=== PATIENT | female | born 1990 | race American Indian/Alaskan Native ===

== ENCOUNTER 2020-07-11 21:24 | Observation (INO) | payer SELFPAY ==
[2020-07-11] MEDS ORDERED: HYDROmorphone 1 MG/1 ML INJ IV ONE ×3 (21:32→23:57)
[2020-07-11] MEDS ORDERED: ONDANSETRON 4 MG/2 ML INJ IV ONE (21:32)
[2020-07-11] MEDS ORDERED: SODIUM CHLORIDE 0.9% 1000 ML 1,000 ML IV ONE (21:32)
--- NOTE | 2020-07-11 21:33 | Emergency Department Report ---
ED HPI - General Chief complaint: Abdominal Pain Stated complaint: POSSIBLE MISCARRIAGE Time Seen by Provider: 07/11/20 21:29 Source: patient Mode of arrival: Stretcher Limitations: No Limitations - History of Present Illness Initial comments: Patient is a 30-year-old female that presents emergency room with complaints of lower abdominal pain and pelvic pain vaginal bleeding. Patient dates she is 6 weeks . Patient states she had a previous ultrasound at a [facility] to confirm . They states she had 1 week ago and she was told that she was 5 weeks . Patient is not sure of when her last period was. Patient states the pain is severe. Patient states the pain is improved a little bit since receiving medication from EMS. Patient brought in by EMS. Report received from EMS. EMS states that the patient was having severe pain to the 50 mcg of fentanyl x2. Patient states pain is a little bit better. Patient states the pain is still a 7 out of 10. Patient states the pain is better with rest and worse with movement. Patient states she is having heavy clots and heavy bleeding per the vagina. Patient denies recent travel. Patient denies recent international travel. Patient denies exposure to the novel coronavirus. Patient denies sick contacts. Patient denies fever and chills. Patient denies cough. Patient denies diarrhea. Patient denies coming in contact with anybody with symptoms of the novel coronavirus. MD Complaint: abdominal pain, vaginal bleeding -: Sudden Location: pelvis Radiation: none Severity: severe Quality: cramping, stabbing Consistency: intermittent Improves with: rest Worsens with: movement Associated symptoms: vaginal bleeding, abdominal pain. denies: nausea/vomiting, vaginal discharge, dysuria, headache, vision changes, malaise, dysparuenia, rash, seizure, shortness of breath, syncope, weakness Vaginal bleeding: heavy, clots :: Yes Number of weeks : 6 OB History - Current : no complications OB History - Previous Pregnancies: no complications Pre-alfredo care: previous ultrasound confi - Related Data : 5 Para: 3 Ab: 1 Allergies Allergy/AdvReac Type Severity Reaction Status Date / Time latex Allergy Hives Verified 07/11/20 21:37 ED Review of Systems ROS: Stated complaint: POSSIBLE MISCARRIAGE Other details as noted in HPI Constitutional: denies: chills, fever Eyes: denies: eye pain, eye discharge, vision change ENT: denies: ear pain, throat pain Respiratory: denies: cough, shortness of breath, wheezing Cardiovascular: denies: chest pain, palpitations Endocrine: no symptoms reported Gastrointestinal: as per HPI, abdominal pain. denies: nausea, diarrhea Genitourinary: as per HPI. denies: urgency, dysuria, discharge Musculoskeletal: denies: back pain, joint swelling, arthralgia Skin: denies: rash, lesions Neurological: denies: headache, weakness, paresthesias Psychiatric: denies: anxiety, depression Hematological/Lymphatic: denies: easy bleeding, easy bruising ED Past Medical Hx - Past Medical History Previous Medical History?: No - Surgical History Past Surgical History?: No - Family History Family history: no significant - Social History Smoking Status: Never Smoker Substance Use Type: None ED Physical Exam - General Limitations: No Limitations General appearance: alert, in no apparent distress - Head Head exam: Present: atraumatic, normocephalic - Eye Eye exam: Present: normal appearance - ENT ENT exam: Present: mucous membranes moist - Neck Neck exam: Present: normal inspection - Respiratory Respiratory exam: Present: normal lung sounds bilaterally. Absent: respiratory distress - Cardiovascular Cardiovascular Exam: Present: regular rate, normal rhythm. Absent: systolic murmur, diastolic murmur, rubs, gallop - GI/Abdominal GI/Abdominal exam: Present: soft, tenderness, normal bowel sounds - Rectal Rectal exam: Present: deferred - Extremities Exam Extremities exam: Present: normal inspection - Back Exam Back exam: Present: normal inspection - Neurological Exam Neurological exam: Present: alert, oriented X3 - Psychiatric Psychiatric exam: Present: normal affect, normal mood - Skin Skin exam: Present: warm, dry, intact, normal color. Absent: rash ED Course Vital Signs 07/11/20 21:38 Temperature 98.9 F Respiratory 20 Rate - Reevaluation(s) Reevaluation #1: Patient states she still having heavy vaginal bleeding. 07/11/20 22:01 Reevaluation #2: Patient states her pain is better. Patient has had the ultrasound done. Patient states her bleeding has slowed down since the ultrasound. Patient's blood pressure is 80/50. Patient's saline bolus open wide open. 07/11/20 22:49 Reevaluation #3: Patient's bleeding has increased again. Patient states her pain is better. Patient's blood pressures 100/60. Patient will continue to receive fluids and we will monitor blood pressure. 07/11/20 23:01 Reevaluation #4: Patient is complaining of severe pain. Patient states she has changed her pad because she bled through a pad. Patient will be given 1 mg Dilaudid. 07/11/20 23:56 Reevaluation #5: Cervical exam done with nurse Christel in the room. The cervical os is closed. N o active bleeding noted. A blood clot removed from the vaginal vault. 07/12/20 00:50 I discussed all results with patient. I discussed plan of care with patient. Patient agrees with plan of care and admission. Patient to be admitted to the [facility] service. 07/12/20 00:58 - Consultations Consultation #1: I discussed case with Dr. Collier, [facility]. Dr. Crenshaw pelvic exam done and then her called back with the status of the cervix. 07/12/20 00:22 Dr. Collier updated with pelvic exam. Dr. COLLIER wants patient admitted to MOTHER-BABY AND TRANSFUSE. 07/12/20 00:55 ED Medical Decision Making - Lab Data Result diagrams: 07/11/20 21:41 07/11/20 21:41 - Radiology Data Radiology results: report reviewed OB Ultrasound HISTORY: vaginal bleeding in . 6 weeks. TECHNIQUE: Grayscale and color imaging performed. COMPARISON: None FINDINGS: Uterus measures 8.3 x 5.0 x 5.6 cm with endometrial echo complex measuring 6 mm. No intrauterine gestation is identified. There are tiny right ovarian follicles. The left ovary is not visualized. No appreciable pelvic free fluid. IMPRESSION: 1. No intrauterine gestation identified. 2. Left ovary is not visualized. 3. Otherwise unremarkable exam. - Medical Decision Making Patient is a 30-year-old female who presents via EMS to the emergency room for severe pelvic and lower abdominal pain. Patient states he is having vaginal bleeding. Patient is 6 weeks . Patient is already had a confirmed IUP with ultrasound. Patient given fentanyl 100 mcg by EMS. Patient given fluids by EMS. Patient in the ER given Dilaudid and Zofran. Patient responded well to pain medication. Patient remained tachycardic and then became hypotensive. Patient was given another liter of fluids in the ER and the patient's blood pressure improved. Patient heart rate improved. Patient's hemoglobin 7.5. Due to the patient's hypotension and tachycardia, the patient will be transfused. Patient was typed and crossed. A pelvic exam was done with a nurse sawmilling operator at all times, Christel GOMES. The pelvic exam showed a closed cervical os and no active bleeding. Patient had labs done and were essentially unremarkable per anemia. Patient's chemistry was normal. Patient had an ultrasound in the ER and it shows a complete miscarriage and no IUP. Patient admitted to [facility], mother-baby for observation and transfusion. Critical care time documented due to the multiple reassessments, prolonged time at the bedside, interpretation of diagnostics and labs. - Differential Diagnosis Miscarriage, anemia, hypotension, tachycardia, abdominal pain Critical Care Time: Yes Critical care time in (mins) excluding proc time.: 35 Critical care attestation.: If time is entered above; I have spent that time in minutes in the direct care of this critically ill patient, excluding procedure time. Critical Care Time: 35 minutes ED Disposition Clinical Impression: Vaginal bleeding, Vaginal bleeding before 22 weeks gestation, Severe anemia, Tachycardia, Complete miscarriage Qualifiers: Weeks of gestation: less than 8 weeks Qualified Code(s): Z3A.01 - Less than 8 weeks gestation of Anemia Qualifiers: Anemia type: unspecified type Qualified Code(s): D64.9 - Anemia, unspecified Hypotension Qualifiers: Hypotension type: unspecified hypotension type Qualified Code(s): I95.9 - Hypotension, unspecified Disposition: OP ADMIT IP TO THIS HOSP Is pt being admited?: Yes Does the pt Need Aspirin: No Condition: Critical Instructions: Abdominal Pain (ED) Time of Disposition: 00:58
[2020-07-11 21:55] LABS: Basophils # (Auto) 0.1 K/mm3 (0.0-0.1); Basophils % (Auto) 0.8 % (0.0-1.8); Eosinophils % (Auto) 0.3 % (0.0-4.3); Lymphocytes # (Auto) 1.6 K/mm3 (1.2-5.4); Lymphocytes % (Auto) 24.7 % (13.4-35.0); Mean Corpuscular HGB Conc 29 % (30-34); Monocytes # (Auto) 0.7 K/mm3 (0.0-0.8); Monocytes % (Auto) 11.5 % (0.0-7.3); Platelet Count 437 K/mm3 (140-440); Red Blood Count 4.08 M/mm3 (3.65-5.03); Red Cell Distribution Width 19.2 % (13.2-15.2)
[2020-07-11 22:04] LABS: Hematocrit 25.8 % (30.3-42.9); Hemoglobin 7.5 gm/dl (10.1-14.3); Mean Corpuscular Volume 63 fl (79-97)
[2020-07-11 22:11] LABS: Blood Urea Nitrogen 13 mg/dL (7-17); Calcium 8.3 mg/dL (8.4-10.2); Hemolysis Index 1
[2020-07-11 22:18] LABS: BUN/Creatinine Ratio 19
--- NOTE | 2020-07-11 23:02 | Ultrasound Report ---
OB Ultrasound HISTORY: vaginal bleeding in . 6 weeks. TECHNIQUE: Grayscale and color imaging performed. COMPARISON: None FINDINGS: Uterus measures 8.3 x 5.0 x 5.6 cm with endometrial echo complex measuring 6 mm. No intraut erine gestation is identified. There are tiny right ovarian follicles. The left ovary is not visualized. No appreciable pelvic free fluid. IMPRESSION: 1. No intrauterine gestation identified. 2. Left ovary is not visualized. 3. Otherwise unremarkable exam. Signer Name: Ralph Crenshaw MD Signed: 07/11/2020 10:57 PM Workstation Name: [id number]
[2020-07-11] MEDS ORDERED: SODIUM CHLORIDE 0.9% 500 ML 500 ML IV ONE (23:51)
[2020-07-12] MEDS ORDERED: HYDROmorphone 1 MG/1 ML INJ IV ONE (01:08)
--- NOTE | 2020-07-12 02:53 | History and Physical Report ---
History of Present Illness Date of examination: 07/12/20 Date of admission: 07/12/20 00:54 Chief complaint: vaginal bleeding and taken to ER via ambulance, positive preg test History of present illness: came to the ER via ambulance with c/o vaginal bleeding that started after having argument with her female partner at home. Pt states she had a positive test on 06/12/20 (pt showed me true blue double line preg test in the picture of her phone) and states that she had sex with a male once in the last week of April because she was planning to have another baby with her female partner. Pt also admits to abdominal pain that started today. Pt states she believes her last period was in the last week of April or the First week of May, she cannot recall. On arrival pt states that she was not dizzy until she was given pain med in the ER and the blood transfusion accepted because she was told her hgb was 4 and her cervix was open. Pt denies dysuria and states she has seen urology for problems with urinary retention in the past. She also admits to having lupus and taking meds and managed by Artificial Log Machine Operator at [facility]. ER physician Dr. Keene called me concerned that he had a patient 6wks (dated by pt report that she had an ultrasound 1wk ago from a clinic at 5wks gestation by ultrasound. No documents available.) that was actively bleeding and tacchycardic and when asked about pelvic exam, he had not done so. With follow up call, this same physician told me the patient was not no longer bleeding and needed to be transfused because her hemoglobin fell to 7. I accepted the patient and told him I would rather her stay in the ER in case I had to complete her miscarriage in the OR, however if stable she may be transferred to the floor. When pt arrived to mother baby, Blood transfusion was already in progress and pt asymptomatic and did not want it continued. On review of the chart, labs for HCG<[address] Keene who admitted that he saw that. 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 Review of Systems All systems: negative (abdominal cramping) - Vital Signs Vital signs: Vital Signs Temp Resp 98.9 F 20 07/11/20 21:38 07/11/20 21:38 Temp Pulse Resp BP Pulse Ox 98.1 F 83 14 110/71 100 07/12/20 02:00 07/12/20 02:00 07/12/20 02:00 07/12/20 02:00 07/12/20 02:00 - Physical Exam Breasts: Positive: normal (without fullness) Cardiovascular: Regular rate (had single tacchycardia episode in ER at 115 and normal BP) Lungs: Positive: Normal air movement Abdomen: Positive: normal appearance Genitourinary (Female): Positive: normal external genitalia (pt with multiple piercings to perineum) Vulva: both: normal Vagina: Positive: normal moisture, discharge (dark brown discharge without any [place] bleeding and pt is not even wearing a pad) Cervix: Positive: other (palpation of cervix closed) Uterus: Positive: normal size (non-enlarged) Adnexa: both: normal Anus/Rectum: Positive: normal perianal skin Extremities: Positive: normal Results Result Diagrams: 07/11/20 21:41 07/11/20 21:41 Abnormal lab results 07/11/20 07/11/20 07/11/20 Range/Units 21:41 21:41 21:43 Hgb 7.5 L (10.1-14.3) gm/dl Hct 25.8 L (30.3-42.9) % MCV 63 L (79-97) fl MCH 18 L (28-32) pg MCHC 29 L (30-34) % RDW 19.2 H (13.2-15.2) % [place] % (Auto) 11.5 H (0.0-7.3) % Sodium 135 L (137-145) mmol/L Potassium 3.4 L (3.6-5.0) mmol/L Calcium 8.3 L (8.4-10.2) mg/dL Crossmatch See Detail All other labs normal. Ultrasound: other (U/Sound with normal size uterus, no IUP, adnexa viewed wnl. 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 1. I will stop the blood transfusion per patient request and charge nurse notified; Hgb 7.5 with none prior, vitals normal 2. I will repeat HCG quant in case of lab error 3. Urine drug screen to be done with conflicting information 4. Will give K-dur 40meq orally for potassium 5. Emotional support given Pt if she remains stable will be discharged home later today to follow up as outpatient for management dysmenorrhea and pt to keep appt with Artificial Log Machine Operator. All questions encouraged and answered
[2020-07-12 04:05] LABS: Amphetamine Screen,Urine PRESUMPTIVE NEGATIVE; Benzodiazepines Screen,Urine PRESUMPTIVE NEGATIVE; Cannabinoid Screen,Urine PRESUMPTIVE POSITIVE; Cocaine Screen,Urine PRESUMPTIVE NEGATIVE; Methadone Screen,Urine PRESUMPTIVE NEGATIVE; Opiate Screen,Urine PRESUMPTIVE NEGATIVE
[2020-07-12] MEDS ORDERED: POTASSIUM CHLORIDE ER 20 MEQ TAB PO SCH (08:00)
[2020-07-12] MEDS ORDERED: POTASSIUM CHLORIDE 20 MEQ PACKET PO ONE (08:30)
[2020-07-12 09:42] VITALS: BP 91/51
--- NOTE | 2020-07-14 23:03 | Discharge Summary ---
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 Blood transfusion started in the ER and when evaluated on the floor, pt declined having symptoms of anemia and requested that blood transfusion be stopped. 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 Condition at discharge: Good Disposition: DC-01 TO HOME OR SELFCARE - Discharge Diagnoses (1) Dysmenorrhea Status: Acute (2) Dysmenorrhea Status: Acute Plan - Provider Discharge Summary Additional instructions: [] Smoking cessation referral if applicable(refer to patient education folder for contact #) [] Refer to [facility] Booklet Call your doctor immediately for: * Fever > 100.5 * Heavy vaginal bleeding ( >1 pad per hour) * Severe persistent headache * Shortness of breath * Reddened, hot, painful area to leg or breast * Drainage or odor from incision. * Keep incision clean and dry at all times and follow doctor's instructions regarding bathing/showering - Follow up plan Follow up: PRIMARY CARE, [Primary Care Provider] - 7 Days Forms: [facility] Discharge Summary
== END 2020-07-12 10:30 | disposition home or self-care (01) ==
LOC: ED 21:24 → OB 07-12 00:54
PROVIDERS: ADMIT Obstetrics & Gynecology; ATTEND Obstetrics & Gynecology
DX: O46.91 Antepartum hemorrhage, unspecified, first trimester (principal); N93.9 Abnormal uterine and vaginal bleeding, unspecified; O99.011 Anemia complicating pregnancy, first trimester; O26.51 Maternal hypotension syndrome, first trimester; R00.0 Tachycardia, unspecified; O26.891 Other specified pregnancy related conditions, first trimester; N94.6 Dysmenorrhea, unspecified; Z3A.01 Less than 8 weeks gestation of pregnancy; Z79.899 Other long term (current) drug therapy
CPT/HCPCS: 36415; 76817; 80048; 80307; 84702; 85025; 86850; 86900; 86901; 86920; 96361; 96374; 96375; 96376; 99291; G0378; J1170; J2405; J7030; J7040; P9016